=== PATIENT | female | born 1940 | race Two or more races ===

== ENCOUNTER → 2017-05-16 | Outpatient (CLI) | payer MEDICARE | END | disposition home or self-care (01) | LOC: PCVCCLINIC 11:00 | PROVIDERS: ATTEND Internal Medicine | DX: I95.1 Orthostatic hypotension (principal); J45.909 Unspecified asthma, uncomplicated; M16.10 Unilateral primary osteoarthritis, unspecified hip; J18.9 Pneumonia, unspecified organism; Z96.651 Presence of right artificial knee joint; Z90.721 Acquired absence of ovaries, unilateral; Z79.82 Long term (current) use of aspirin; Z79.899 Other long term (current) drug therapy | CPT/HCPCS: 93005; G0463 ==